=== PATIENT | male | born 1980 | race Caucasian/White ===

== ENCOUNTER 2020-10-04 13:48 | Outpatient (CLI) | payer MEDICAID ==
--- NOTE | 2020-10-04 21:00 | Consultation ---
DATE OF CONSULTATION: 10/04/2020 CHIEF COMPLAINT: Rectal pain. HISTORY OF PRESENT ILLNESS: This is a 40-year-old male with history of rectal pain for a year and a half. Apparently, he had a colonoscopy a year and a half ago. I do not have the results but he was told that he had hemorrhoids. He states it is different than hemorrhoids. He sees a pocket outside his rectum. PAST MEDICAL HISTORY: Hemorrhoids. PAST SURGICAL HISTORY: Back surgery. MEDICATIONS: Please see medication reconciliation. ALLERGIES: No known drug allergies. SOCIAL HISTORY: The patient denies any tobacco, alcohol, or drug abuse. FAMILY HISTORY: Noncontributory. REVIEW OF SYSTEMS: A 10-point review of systems was performed, pertinent positives in HPI. PHYSICAL EXAMINATION: VITAL SIGNS: Temperature 97.2. Vital signs stable. Height is 6 feet. Weight is 160. HEENT: Normocephalic and atraumatic. Sclerae are anicteric. NECK: Supple. No evidence of obvious lymphadenopathy. CARDIOVASCULAR: Regular rhythm. Plus S1-S2. LUNGS: Decreased breath sounds bilaterally based on the supine exam. ABDOMEN: Soft, nontender. No rebound. No guarding. No peritoneal sign. EXTREMITIES: No cyanosis. No clubbing. No edema. RECTAL: Evidence of internal and external hemorrhoids. No obvious pocket was seen in the rectum. ASSESSMENT: This is a 40-year-old male complaining of rectal dysfunction, pain in the rectum. There is evidence of internal and external hemorrhoids on exam. PLAN: The patient is very adamant that there is some tumor or some bulge inside his rectum that is causing the problem. He had a colonoscopy and year and half ago. We have reassured him, but he wants to have to take a look inside and make sure everything is okay. We are going to try to get authorization and schedule him for that. Marlon Sims M.D. DR: Dao JOB#: [id number] CC:
== END 2020-10-04 15:29 | disposition home or self-care (01) ==
LOC: PAN 13:48
DX: K62.89 Other specified diseases of anus and rectum (principal); K59.9 Functional intestinal disorder, unspecified; K64.8 Other hemorrhoids; K64.4 Residual hemorrhoidal skin tags
CPT/HCPCS: 99203